=== PATIENT | female | born 1960 | race Caucasian/White ===

== ENCOUNTER 2021-02-19 17:56 | Inpatient (IN) | payer BC ==
[~2021-02-19] VITALS: Ht 167.6 cm; Wt 129.0 kg
--- NOTE | 2021-02-19 18:05 | NUR ---
KRISTY LOMBARDI FROM [facility]. + [place]TH[place]
--- NOTE | 2021-02-19 18:15 | NUR ---
O2 SAT 88% 2LNC. O2 INCREASED TO 4LNC, SAT INCREASED TO 90%. 02 INCREASED TO 6LNC; SAT INCREASED TO 92%.
[2021-02-19 19:27] LABS: BASOPHILS % (AUTO) 1 % (0-1); EOSINOPHILS % (AUTO) 0 % (1-7); LYMPHOCYTES % (AUTO) 16 % (22-44); MEAN CORPUSCULAR HGB CONC 33.4 g/dL (32.4-35.8); MEAN PLATELET VOLUME 8.7 fL (7.4-10.4); MONOCYTES % (AUTO) 5 % (2-9); NEUTROPHILS % (AUTO) 79 % (42-75); PLATELET COUNT 163 x10^3/uL (130-400); RED BLOOD COUNT 5.01 x10^6/uL (3.82-5.3); RED CELL DISTRIBUTION WIDTH 15.5 % (9.6-15.2)
[2021-02-19 19:39] LABS: ALBUMIN 2.7 g/dL (3.4-5.0); ANION GAP 2 mmol/L (5-15); CHLORIDE 109 mmol/L (98-107)
[2021-02-19 19:44] LABS: ALANINE AMINOTRANSFERASE 48 U/L (12-78); ALKALINE PHOSPHATASE 142 U/L (45-117); BILIRUBIN,TOTAL 0.4 mg/dL (0.2-1.0); CREATININE 0.81 mg/dL (0.55-1.02); TOTAL PROTEIN 6.5 g/dL (6.4-8.2); TROPONIN I < 0.015 ng/mL (0.000-0.045)
[2021-02-19] MEDS ORDERED: CEFTRIAXONE 1,000 MG in DEXTROSE 5% 50 ML IVPB ONE (20:00)
[2021-02-19] MEDS ORDERED: AZITHROMYCIN 500 MG in SODIUM CHLORIDE 0.9% 250 ML IVPB ONE (20:00)
[2021-02-19 22:26] VITALS: BP 135/65
[2021-02-19] MEDS: ASCORBIC ACID 500 MG TABLET PO SCH (22:47)
[2021-02-19] MEDS: ENOXAPARIN 40 MG/0.4 ML SQ SCH (22:47)
[2021-02-19] MEDS ORDERED: MELATONIN 5 MG TABLET PO PRN (23:00)
[2021-02-19] MEDS ORDERED: ACETAMINOPHEN 325 MG TABLET PO PRN (23:00)
[2021-02-19] MEDS ORDERED: ENALAPRILAT 1.25 MG/ML, 2ML IVPush PRN (23:00)
[2021-02-19] MEDS ORDERED: PHARMACY MAY ADJ FOR RENAL FX MC PRN (23:00)
[2021-02-19] MEDS ORDERED: DOCUSATE 100 MG CAPSULE PO PRN (23:00)
[2021-02-20 00:46] VITALS: BP 102/60
[2021-02-20] MEDS: BENZONATATE 100 MG CAPSULE PO PRN (03:57)
[2021-02-20 05:36] LABS: BASOPHILS % (AUTO) 0 % (0-1); EOSINOPHILS % (AUTO) 0 % (1-7); HCT (SEDRATE) 40.3 % (34.6-47.8); LYMPHOCYTES % (AUTO) 13 % (22-44); MEAN CORPUSCULAR HEMOGLOBIN 27.8 pg (27.0-34.8); MEAN CORPUSCULAR HGB CONC 33.3 g/dL (32.4-35.8); MEAN PLATELET VOLUME 8.8 fL (7.4-10.4); MONOCYTES % (AUTO) 7 % (2-9); NEUTROPHILS % (AUTO) 79 % (42-75); PLATELET COUNT 166 x10^3/uL (130-400); RED BLOOD COUNT 4.82 x10^6/uL (3.82-5.3); RED CELL DISTRIBUTION WIDTH 15.3 % (9.6-15.2)
[2021-02-20 05:46] LABS: INTERNATIONAL NORMALIZED RATIO 0.99 (0.93-1.1); PROTHROMBIN TIME 10.6 Seconds (9.6-11.5)
[2021-02-20 05:47] LABS: CALCIUM 8.3 mg/dL (8.5-10.1); CHLORIDE 105 mmol/L (98-107)
[2021-02-20 06:13] LABS: ANION GAP 7 mmol/L (5-15); CREATINE KINASE, TOTAL 255 U/L (26-192); CREATININE 0.81 mg/dL (0.55-1.02)
[2021-02-20] MEDS: ALBUTEROL HFA 90 MCG/SPRAY INH SCH ×4 (06:30→20:01)
[2021-02-20] MEDS ORDERED: DEXAMETHASONE 4 MG/ML, 1ML ONE ×2 (07:13→08:50)
[2021-02-20 07:58] VITALS: BP 114/73
[2021-02-20] MEDS: CHOLECALCIFEROL 5,000u TAB PO SCH (08:45)
[2021-02-20] MEDS: ASCORBIC ACID 500 MG TABLET PO SCH ×2 (08:46→20:02)
[2021-02-20] MEDS: ZINC SULFATE 220 MG CAPSULE PO SCH (08:46)
[2021-02-20] MEDS: DEXAMETHASONE 4 MG/ML, 5ML IVPush SCH (08:51)
[2021-02-20 13:55] VITALS: BP 104/69
[2021-02-20 19:48] VITALS: BP 124/77
[2021-02-20] MEDS: CEFTRIAXONE 1,000 MG in DEXTROSE 5% 50 ML IVPB SCH (20:01)
[2021-02-20] MEDS: AZITHROMYCIN 500 MG in SODIUM CHLORIDE 0.9% 250 ML IV SCH (21:07)
[2021-02-20] MEDS: ENOXAPARIN 40 MG/0.4 ML SQ SCH (22:11)
[2021-02-21 01:41] VITALS: BP 91/54
[2021-02-21 05:30] LABS: HCT (SEDRATE) 38.5 % (34.6-47.8)
[2021-02-21 05:36] LABS: BASOPHILS % (AUTO) 0 % (0-1); EOSINOPHILS % (AUTO) 0 % (1-7); LYMPHOCYTES % (AUTO) 30 % (22-44); MEAN CORPUSCULAR HEMOGLOBIN 28.2 pg (27.0-34.8); MEAN CORPUSCULAR HGB CONC 33.7 g/dL (32.4-35.8); MEAN PLATELET VOLUME 8.6 fL (7.4-10.4); MONOCYTES % (AUTO) 15 % (2-9); NEUTROPHILS % (AUTO) 55 % (42-75); PLATELET COUNT 181 x10^3/uL (130-400); RED BLOOD COUNT 4.61 x10^6/uL (3.82-5.3); RED CELL DISTRIBUTION WIDTH 15.3 % (9.6-15.2)
[2021-02-21 05:43] LABS: CHLORIDE 107 mmol/L (98-107)
[2021-02-21 05:57] LABS: ALANINE AMINOTRANSFERASE 61 U/L (12-78); ALBUMIN 2.5 g/dL (3.4-5.0); ALKALINE PHOSPHATASE 130 U/L (45-117); ANION GAP 5 mmol/L (5-15); BILIRUBIN,TOTAL 0.3 mg/dL (0.2-1.0); CALCIUM 8.8 mg/dL (8.5-10.1); CREATINE KINASE, TOTAL 305 U/L (26-192); CREATININE 0.76 mg/dL (0.55-1.02); TOTAL PROTEIN 6.4 g/dL (6.4-8.2)
[2021-02-21] MEDS: ALBUTEROL HFA 90 MCG/SPRAY INH SCH ×4 (05:59→20:10)
[2021-02-21 07:54] VITALS: BP 107/68
[2021-02-21] MEDS: ZINC SULFATE 220 MG CAPSULE PO SCH (09:25)
[2021-02-21] MEDS: DEXAMETHASONE 4 MG/ML, 5ML IVPush SCH (09:25)
[2021-02-21] MEDS: ASCORBIC ACID 500 MG TABLET PO SCH ×2 (09:25→20:10)
[2021-02-21] MEDS: CHOLECALCIFEROL 5,000u TAB PO SCH (09:25)
[2021-02-21] MEDS: BENZONATATE 100 MG CAPSULE PO PRN ×2 (09:25→20:10)
[2021-02-21 12:49] VITALS: BP 127/74
[2021-02-21] MEDS: CEFTRIAXONE 1,000 MG in DEXTROSE 5% 50 ML IVPB SCH (20:10)
[2021-02-21] MEDS: ENOXAPARIN 40 MG/0.4 ML SQ SCH (20:10)
[2021-02-21] MEDS: AZITHROMYCIN 500 MG in SODIUM CHLORIDE 0.9% 250 ML IV SCH (20:11)
[2021-02-21 20:51] VITALS: BP_SYST 131; BP_SYST 133; BP_DIAS 68; BP_DIAS 94
[2021-02-22 00:48] VITALS: BP 125/77
[2021-02-22] MEDS: ALBUTEROL HFA 90 MCG/SPRAY INH SCH ×4 (05:05→21:25)
[2021-02-22 06:41] LABS: HCT (SEDRATE) 39.7 % (34.6-47.8)
[2021-02-22 06:51] LABS: INTERNATIONAL NORMALIZED RATIO 0.96 (0.93-1.1); PROTHROMBIN TIME 10.3 Seconds (9.6-11.5)
[2021-02-22 06:57] LABS: C-REACTIVE PROTEIN, QUANT 1.4 mg/dL (0.02-0.49)
[2021-02-22 07:02] VITALS: BP 135/72
[2021-02-22] MEDS ORDERED: DEXAMETHASONE 4 MG/ML, 1ML ONE (07:52)
[2021-02-22] MEDS: DEXAMETHASONE 4 MG/ML, 5ML IVPush SCH (09:45)
[2021-02-22] MEDS: ENOXAPARIN 40 MG/0.4 ML SQ SCH ×2 (09:46→21:25)
[2021-02-22] MEDS: ZINC SULFATE 220 MG CAPSULE PO SCH (09:46)
[2021-02-22] MEDS: CHOLECALCIFEROL 5,000u TAB PO SCH (09:46)
[2021-02-22] MEDS: ASCORBIC ACID 500 MG TABLET PO SCH ×2 (09:47→21:25)
[2021-02-22 18:33] VITALS: BP 123/58
[2021-02-22] MEDS: CEFTRIAXONE 1,000 MG in DEXTROSE 5% 50 ML IVPB SCH (21:25)
[2021-02-22] MEDS: AZITHROMYCIN 500 MG in SODIUM CHLORIDE 0.9% 250 ML IV SCH (22:45)
[2021-02-23 01:56] VITALS: BP 112/60
[2021-02-23 04:42] LABS: HCT (SEDRATE) 40.3 % (34.6-47.8)
[2021-02-23 04:48] LABS: C-REACTIVE PROTEIN, QUANT 0.75 mg/dL (0.02-0.49)
[2021-02-23] MEDS: ALBUTEROL HFA 90 MCG/SPRAY INH SCH ×4 (06:00→20:43)
[2021-02-23 07:58] VITALS: BP 109/79
[2021-02-23] MEDS: ZINC SULFATE 220 MG CAPSULE PO SCH (09:00)
[2021-02-23] MEDS ORDERED: DEXAMETHASONE 4 MG/ML, 1ML ONE (10:35)
[2021-02-23] MEDS: DEXAMETHASONE 4 MG/ML, 5ML IVPush SCH (11:14)
[2021-02-23] MEDS: ENOXAPARIN 40 MG/0.4 ML SQ SCH ×2 (11:15→20:42)
[2021-02-23] MEDS: CHOLECALCIFEROL 5,000u TAB PO SCH (11:16)
[2021-02-23] MEDS: ASCORBIC ACID 500 MG TABLET PO SCH ×2 (11:16→20:42)
[2021-02-23] MEDS: BENZONATATE 100 MG CAPSULE PO PRN (11:16)
[2021-02-23 12:00] VITALS: BP 118/71
[2021-02-23] MEDS: CEFTRIAXONE 1,000 MG in DEXTROSE 5% 50 ML IVPB SCH (20:42)
[2021-02-23 22:34] VITALS: BP 132/83
[2021-02-23] MEDS: AZITHROMYCIN 500 MG in SODIUM CHLORIDE 0.9% 250 ML IV SCH (22:36)
[2021-02-24 01:38] VITALS: BP 128/87
[2021-02-24] MEDS: ALBUTEROL HFA 90 MCG/SPRAY INH SCH ×4 (06:00→20:17)
[2021-02-24 06:29] LABS: HCT (SEDRATE) 41.7 % (34.6-47.8)
[2021-02-24 06:40] LABS: INTERNATIONAL NORMALIZED RATIO 1.01 (0.93-1.1); PROTHROMBIN TIME 10.8 Seconds (9.6-11.5)
[2021-02-24 06:40] LABS: C-REACTIVE PROTEIN, QUANT 0.45 mg/dL (0.02-0.49)
[2021-02-24 07:59] VITALS: BP 100/67
[2021-02-24] MEDS ORDERED: DEXAMETHASONE 4 MG/ML, 1ML ONE (08:24)
[2021-02-24] MEDS: CHOLECALCIFEROL 5,000u TAB PO SCH (08:50)
[2021-02-24] MEDS: ASCORBIC ACID 500 MG TABLET PO SCH ×2 (08:50→20:17)
[2021-02-24] MEDS: ENOXAPARIN 40 MG/0.4 ML SQ SCH ×2 (08:50→20:17)
[2021-02-24] MEDS: DEXAMETHASONE 4 MG/ML, 5ML IVPush SCH (08:51)
[2021-02-24] MEDS: ZINC SULFATE 220 MG CAPSULE PO SCH (08:52)
[2021-02-24 12:54] VITALS: BP 110/75
[2021-02-24 20:04] VITALS: BP 120/72
[2021-02-24] MEDS: CEFTRIAXONE 1,000 MG in DEXTROSE 5% 50 ML IVPB SCH (20:16)
[2021-02-24] MEDS: AZITHROMYCIN 500 MG in SODIUM CHLORIDE 0.9% 250 ML IV SCH (22:04)
[2021-02-25 01:38] VITALS: BP 115/71
[2021-02-25] MEDS: ALBUTEROL HFA 90 MCG/SPRAY INH SCH ×2 (05:43→11:00)
[2021-02-25 06:14] LABS: HCT (SEDRATE) 40.5 % (34.6-47.8)
[2021-02-25 06:31] LABS: C-REACTIVE PROTEIN, QUANT 0.29 mg/dL (0.02-0.49)
[2021-02-25 07:18] VITALS: BP 114/63
[2021-02-25] MEDS ORDERED: BENZ-17 PO ×2 (09:09→09:15)
[2021-02-25] MEDS ORDERED: DEXA4TAB66 PO ×2 (09:09→09:15)
[2021-02-25] MEDS ORDERED: DEXAMETHASONE 4 MG/ML, 1ML ONE (09:35)
[2021-02-25] MEDS: DEXAMETHASONE 4 MG/ML, 5ML IVPush SCH (09:46)
[2021-02-25] MEDS: CHOLECALCIFEROL 5,000u TAB PO SCH (09:47)
[2021-02-25] MEDS: ASCORBIC ACID 500 MG TABLET PO SCH (09:47)
[2021-02-25] MEDS: ENOXAPARIN 40 MG/0.4 ML SQ SCH (09:47)
[2021-02-25] MEDS: ZINC SULFATE 220 MG CAPSULE PO SCH (09:48)
[2021-02-25 13:00] VITALS: BP 108/66
== END 2021-02-25 17:28 | disposition home or self-care (01) | DRG 177 ==
LOC: ED 20:16 → EDIP 21:39 → 3N 22:00
PROVIDERS: ADMIT Internal Medicine; ATTEND Hospitalist
PROC: 5A0935A Assistance with Respiratory Ventilation, Less than 24 Consecutive Hours, High Flow/Velocity Cannula (ICD-10-PCS; principal; 2021-02-23)
DX: U07.1 COVID-19 (principal); J12.82 Pneumonia due to coronavirus disease 2019; J96.00 Acute respiratory failure, unspecified whether with hypoxia or hypercapnia; J15.9 Unspecified bacterial pneumonia; J96.01 Acute respiratory failure with hypoxia; Z68.41 Body mass index [BMI] 40.0-44.9, adult; R73.9 Hyperglycemia, unspecified; E66.01 Morbid (severe) obesity due to excess calories; Z85.038 Personal history of other malignant neoplasm of large intestine; Z90.49 Acquired absence of other specified parts of digestive tract; Z79.899 Other long term (current) drug therapy
CPT/HCPCS: 36415; 71045; 80048; 80053; 82550; 82728; 83880; 84484; 85025; 85379; 85384; 85610; 85651; 85730; 86140; 87040; 93005; 96374; 99291; G0378; J0456; J0696; J1100; J1650; J7050